=== PATIENT | male | born 1975 | race Caucasian/White ===

== ENCOUNTER → 2017-09-08 | Outpatient (CLI) | payer OTHER ==
[~2017-09-08] MED LIST: SERT50TA PO
== END | disposition home or self-care (01) ==
LOC: C.CPL 10:07
PROVIDERS: ATTEND Psychiatry & Neurology Psychiatry
DX: R94.31 Abnormal electrocardiogram [ECG] [EKG] (principal); Z79.899 Other long term (current) drug therapy